=== PATIENT | male | born 1975 | race Caucasian/White ===

== ENCOUNTER → 2020-02-22 | Outpatient (CLI) | payer OTHER ==
[2020-02-22 14:45] LABS: MICROSCOPIC NOT IND
[2020-02-22 14:48] LABS: BASOPHILS # (AUTO) 0.03 x10^3/uL (0-0.1); BASOPHILS % (AUTO) 0 % (0-1); EOSINOPHILS # (AUTO) 0.07 x10^3/uL (0-0.4); EOSINOPHILS % (AUTO) 1 % (1-7); LYMPHOCYTES # (AUTO) 1.48 x10^3/uL (1-3.4); LYMPHOCYTES % (AUTO) 17 % (22-44); MD NO; MEAN CORPUSCULAR HEMOGLOBIN 30.6 pg (27.5-34.5); MEAN CORPUSCULAR HGB CONC 33.3 g/dL (33.2-36.2); MEAN PLATELET VOLUME 8.2 fL (7.4-10.4); MONOCYTES # (AUTO) 0.79 x10^3/uL (0.2-0.8); MONOCYTES % (AUTO) 9 % (2-9); NEUTROPHILS # (AUTO) 6.26 x10^3/uL (1.8-6.8); NEUTROPHILS % (AUTO) 73 % (42-75); PLATELET COUNT 221 x10^3/uL (130-400); RED CELL DISTRIBUTION WIDTH 12.3 % (9.4-14.8)
[2020-02-22 14:56] LABS: PROTHROMBIN TIME 10.3 Seconds (9.6-11.5)
[2020-02-22 14:57] LABS: ALBUMIN 4.1 g/dL (3.4-5.0); ANION GAP 5 mmol/L (5-15); CALCIUM 9.3 mg/dL (8.5-10.1); CHLORIDE 108 mmol/L (98-107)
[2020-02-22 15:01] LABS: ALANINE AMINOTRANSFERASE 27 U/L (12-78); ALKALINE PHOSPHATASE 57 U/L (45-117); BILIRUBIN,TOTAL 0.8 mg/dL (0.2-1.0); CREATININE 0.81 mg/dL (0.7-1.3); TOTAL PROTEIN 7.9 g/dL (6.4-8.2)
== END | disposition home or self-care (01) ==
LOC: STAR 13:22
PROVIDERS: ATTEND Neurological Surgery
DX: Z01.818 Encounter for other preprocedural examination (principal); D32.1 Benign neoplasm of spinal meninges; R94.31 Abnormal electrocardiogram [ECG] [EKG]
CPT/HCPCS: 36415; 71046; 72110; 80053; 81003; 85025; 85610; 85730; 93005

== ENCOUNTER → 2020-02-29 | Outpatient (CLI) | payer OTHER ==
[~2020-02-29] MED LIST: BUPIVACAINE/PF 0.25% ONE; HYDR25TA6 PO; LISI-170 PO
== END | disposition home or self-care (01) ==
LOC: STAR 13:25
PROVIDERS: ATTEND Anesthesiology
DX: Z01.812 Encounter for preprocedural laboratory examination (principal); Z20.828 Contact with and (suspected) exposure to other viral communicable diseases
CPT/HCPCS: 36415; 87635

== ENCOUNTER 2020-03-04 06:44 | Inpatient (IN) | payer OTHER ==
[~2020-03-04] VITALS: Ht 180.3 cm; Wt 95.0 kg
[2020-03-04] MEDS ORDERED: OXYcodone IR 5MG TABLET PO ONE (07:00)
[2020-03-04] MEDS ORDERED: FAMOTIDINE 20 MG TABLET PO ONE (07:00)
[2020-03-04] MEDS ORDERED: ACETAMINOPHEN 500 MG TABLET PO ONE (07:00)
[2020-03-04] MEDS ORDERED: CHLORHEXIDINE 15 ML UDC MM STA (07:01)
[2020-03-04] MEDS ORDERED: LACTATED RINGERS 1,000 ML IV SCH (07:02)
[2020-03-04] MEDS ORDERED: LISI-170 PO (07:21)
[2020-03-04] MEDS ORDERED: HYDR25TA6 PO (07:21)
[2020-03-04] MEDS ORDERED: FENTANYL PF 250 MCG/5ML ONE (08:26)
[2020-03-04] MEDS ORDERED: BUPIVACAINE/PF 0.25% ONE (08:57)
[2020-03-04] MEDS ORDERED: THROMBIN 5,000 UNIT VIAL TP ONE (08:57)
[2020-03-04] MEDS ORDERED: EPINEPHRINE 1 MG/ML, 1ML ONE (08:58)
[2020-03-04] MEDS ORDERED: BACITRACIN 50,000 UNIT ONE (08:59)
[2020-03-04] MEDS ORDERED: GLYCOPYRROLATE 0.2MG/1ML, 5ML ONE (09:26)
[2020-03-04] MEDS ORDERED: ONDANSETRON 2MG/ML, 2ML ONE ×4 (09:26→09:27)
[2020-03-04] MEDS ORDERED: PROPOFOL 10 MG/ML, 20ML ONE ×2 (09:26)
[2020-03-04] MEDS ORDERED: SUCCINYLCHOLINE 20 MG/ML, 10ML ONE (09:26)
[2020-03-04] MEDS ORDERED: CEFAZOLIN 1,000 MG ONE ×2 (09:26)
[2020-03-04] MEDS ORDERED: DEXAMETHASONE 4 MG/ML, 1ML ONE ×2 (09:27)
[2020-03-04] MEDS ORDERED: HYDROmorphone 1 MG/ML, 1ML INJ IVPush PRN (10:00)
[2020-03-04] MEDS ORDERED: PROMETHAZINE 25 MG/ML, 1ML IVPush PRN (10:00)
[2020-03-04] MEDS ORDERED: OXYcodone 5 MG/5 ML ORAL.SOL UDC PO PRN (10:00)
[2020-03-04] MEDS ORDERED: HYDROmorphone PCA 30 MG/30 ML IV PRN (13:30)
[2020-03-04] MEDS ORDERED: FENTANYL PF 100 MCG/2ML ONE (13:51)
[2020-03-04] MEDS: FENTANYL PF 100 MCG/2ML IV PRN ×3 (13:55→14:20)
[2020-03-04 15:15] VITALS: BP 141/97
[2020-03-04] MEDS ORDERED: BISACODYL 10 MG SUPP PR PRN (16:00)
[2020-03-04] MEDS ORDERED: ONDANSETRON 2MG/ML, 2ML IV PRN (16:00)
[2020-03-04] MEDS ORDERED: DIPHENHYDRAMINE 50 MG/ML, 1ML IVPush PRN (16:00)
[2020-03-04] MEDS ORDERED: CEFAZOLIN PMX 1GM/50ML 50 ML IVPB SCH (16:00)
[2020-03-04] MEDS ORDERED: DIAZEPAM 5 MG/ML, 2ML IV PRN (16:00)
[2020-03-04] MEDS ORDERED: DIPHENHYDRAMINE 25 MG CAPSULE PO PRN (16:00)
[2020-03-04] MEDS ORDERED: MAGNESIUM HYDROXIDE 8%, 30ML UDC PO PRN (16:00)
[2020-03-04] MEDS: DEXAMETHASONE 4 MG TABLET PO SCH ×2 (16:38→22:00)
[2020-03-04] MEDS: DEXAMETHASONE 4 MG/ML, 1ML IV SCH ×2 (16:38→22:18)
[2020-03-04] MEDS: CEFAZOLIN PMX 1GM/50ML 50 ML IVPB SCH (17:46)
[2020-03-04 20:00] VITALS: BP 154/95
[2020-03-04] MEDS: NS + 20MEQ KCL 1,000 ML IV SCH (22:18)
[2020-03-05 00:10] VITALS: BP 138/89
[2020-03-05] MEDS: CEFAZOLIN PMX 1GM/50ML 50 ML IVPB SCH (02:15)
[2020-03-05 04:27] VITALS: BP 149/86
[2020-03-05] MEDS: DEXAMETHASONE 4 MG/ML, 1ML IV SCH ×2 (04:36→09:10)
[2020-03-05] MEDS: DEXAMETHASONE 4 MG TABLET PO SCH ×2 (04:37→12:01)
[2020-03-05 06:06] LABS: ANION GAP 7 mmol/L (5-15); CALCIUM 8.5 mg/dL (8.5-10.1); CHLORIDE 107 mmol/L (98-107)
[2020-03-05 06:07] LABS: BASOPHILS % (AUTO) 0 % (0-1); EOSINOPHILS % (AUTO) 1 % (1-7); LYMPHOCYTES % (AUTO) 4 % (22-44); MD NO; MEAN CORPUSCULAR HGB CONC 34.4 g/dL (33.2-36.2); MONOCYTES # (AUTO) 0.39 x10^3/uL (0.2-0.8); MONOCYTES % (AUTO) 2 % (2-9); NEUTROPHILS # (AUTO) 15.05 x10^3/uL (1.8-6.8); NEUTROPHILS % (AUTO) 93 % (42-75); PLATELET COUNT 225 x10^3/uL (130-400); RED BLOOD COUNT 5.12 x10^6/uL (4.38-5.82); RED CELL DISTRIBUTION WIDTH 12.4 % (9.4-14.8)
[2020-03-05 06:08] LABS: CREATININE 0.94 mg/dL (0.7-1.3)
[2020-03-05 08:57] VITALS: BP 128/84
[2020-03-05] MEDS: HYDROCHLOROTHIAZIDE 25 MG TABLET PO SCH (09:10)
[2020-03-05] MEDS: LISINOPRIL 10 MG TABLET PO SCH (09:10)
[2020-03-05] MEDS: SENNA/DOCUSATE TABLET PO SCH ×2 (09:10→09:50)
[2020-03-05] MEDS: NS + 20MEQ KCL 1,000 ML IV SCH ×2 (09:49→18:00)
[2020-03-05 12:37] VITALS: BP 138/84
[2020-03-05 20:03] VITALS: BP 141/87
[2020-03-06] VITALS (7 sets, daily range): BP systolic 68–127; BP diastolic 44–84
[2020-03-06] MEDS: NS + 20MEQ KCL 1,000 ML IV SCH ×2 (04:00→14:19)
[2020-03-06] MEDS: OXYcodone IR 5MG TABLET PO PRN ×5 (06:35→20:45)
[2020-03-06] MEDS: METHOCARBAMOL 750 MG TABLET PO PRN ×3 (08:51→23:16)
[2020-03-06] MEDS: LISINOPRIL 10 MG TABLET PO SCH (08:51)
[2020-03-06] MEDS: HYDROCHLOROTHIAZIDE 25 MG TABLET PO SCH (08:51)
[2020-03-06] MEDS: SENNA/DOCUSATE TABLET PO SCH (08:51)
[2020-03-06] MEDS: DIAZEPAM 5 MG TABLET PO PRN ×2 (13:12→22:01)
[2020-03-06] MEDS: morphine SULFATE 10 MG/ML, 1ML IV PRN (18:51)
[2020-03-07] MEDS: OXYcodone IR 5MG TABLET PO PRN ×5 (00:02→13:25)
[2020-03-07 02:39] VITALS: BP 137/96
[2020-03-07] MEDS: morphine SULFATE 10 MG/ML, 1ML IV PRN ×2 (03:21→11:55)
[2020-03-07] MEDS: METHOCARBAMOL 750 MG TABLET PO PRN ×2 (05:41→11:50)
[2020-03-07 06:30] VITALS: BP 129/84
[2020-03-07] MEDS: LISINOPRIL 10 MG TABLET PO SCH (09:04)
[2020-03-07] MEDS: HYDROCHLOROTHIAZIDE 25 MG TABLET PO SCH (09:04)
[2020-03-07] MEDS: SENNA/DOCUSATE TABLET PO SCH (09:04)
[2020-03-07] MEDS ORDERED: CYCL-259 PO (09:07)
[2020-03-07] MEDS ORDERED: OXYC1TAB18 PO (09:07)
[2020-03-07] MEDS: CYCLOBENZAPRINE 10 MG TABLET PO PRN ×2 (09:31→17:59)
[2020-03-07] MEDS: NS + 20MEQ KCL 1,000 ML IV SCH ×3 (10:00→20:00)
[2020-03-07 13:33] VITALS: BP 125/84
[2020-03-07] MEDS ORDERED: OXYcodone IR 5MG TABLET PO PRN (14:00)
[2020-03-07] MEDS: HYDROmorphone 2MG TABLET PO PRN ×2 (16:40→20:46)
[2020-03-07 20:32] VITALS: BP 129/83
[2020-03-07] MEDS: DIAZEPAM 5 MG TABLET PO PRN (23:13)
[2020-03-08] MEDS: HYDROmorphone 2MG TABLET PO PRN ×4 (00:51→13:02)
[2020-03-08 02:54] VITALS: BP 123/82
[2020-03-08] MEDS: CYCLOBENZAPRINE 10 MG TABLET PO PRN ×2 (04:40→13:02)
[2020-03-08] MEDS: NS + 20MEQ KCL 1,000 ML IV SCH (06:00)
[2020-03-08 06:50] VITALS: BP 122/84
[2020-03-08] MEDS: DEXAMETHASONE 4 MG/ML, 1ML IV SCH ×2 (08:58→14:29)
[2020-03-08] MEDS: HYDROCHLOROTHIAZIDE 25 MG TABLET PO SCH (08:58)
[2020-03-08] MEDS: LISINOPRIL 10 MG TABLET PO SCH (08:58)
[2020-03-08] MEDS: SENNA/DOCUSATE TABLET PO SCH (08:59)
[2020-03-08] MEDS: DIAZEPAM 5 MG TABLET PO PRN (10:27)
[2020-03-08 13:26] VITALS: BP 132/90
== END 2020-03-08 14:45 | disposition home or self-care (01) | DRG 42 ==
LOC: ORIP 06:44 → 4NE 15:15
PROVIDERS: ADMIT Neurological Surgery; ATTEND Neurological Surgery
PROC: 4A11X4G Monitoring of Peripheral Nervous Electrical Activity, Intraoperative, External Approach (ICD-10-PCS; 2020-03-04)
PROC: 01NB0ZZ Release Lumbar Nerve, Open Approach (ICD-10-PCS; principal; 2020-03-04 09:30)
DX: G83.4 Cauda equina syndrome (principal); D36.10 Benign neoplasm of peripheral nerves and autonomic nervous system, unspecified; Z88.1 Allergy status to other antibiotic agents; Z91.018 Allergy to other foods
CPT/HCPCS: 36415; 72100; 80048; 85025; 88304; 88311; 88331; G0378; J0171; J0690; J1100; J1170; J2405; J2704; J3010; J3480; J3490; C1781; J0330; J2270; J7120